=== PATIENT | male | born 1955 | race Caucasian/White ===

== ENCOUNTER 2016-06-03 08:14 | Day surgery (SDC) | payer SELFPAY ==
[2016-06-02 12:33] LABS: BASOPHILS 0.6 %; BASOPHILS ABSOLUTE 0.03 10/3/uL (0.0-0.16); EOSINOPHILS 1.4 %; EOSINOPHILS ABSOLUTE 0.07 10/3/uL (0.0-0.53); HEMATOCRIT 50.1 % (40.0-51.0); LYMPHOCYTES 27.1 %; LYMPHOCYTES ABSOLUTE 1.31 10/3/uL (0.67-4.30); MEAN CORPUS HGB CONC 35.9 g/dL (32.0-36.0); MEAN CORPUSCULAR HEMOGLOB 34.9 pg (26.0-34.0); MEAN CORPUSCULAR VOLUME 97.1 fL (80-100); MEAN PLATELET VOLUME 12.8 fL (9.2-13.0); MONOCYTES 12.4 %; NEUTROPHILS 58.5 %; NEUTROPHILS ABSOLUTE 2.83 10/3/uL (2.02-8.40); PLATELET COUNT 56 10/3/uL (150-400); RBC DISTRIBUTION WIDTH 15.8 % (12.0-16.0); RED CELL COUNT 5.16 10/6/uL (4.7-6.1); WHITE BLOOD CELLS 4.8 10/3/uL (4.5-10.5)
[2016-06-02 12:34] LABS: MANUAL DIFF NO %
[2016-06-02 12:54] LABS: ALBUMIN 4.2 G/DL (3.5-5.0); ALKALINE PHOSPHATASE 81 U/L (45-117); BUN (BLOOD UREA NITROGEN) 7 MG/DL (6-23); CALCIUM, SERUM 9.5 MG/DL (8.5-10.4); CHLORIDE, SERUM 103 MMOL/L (96-112); CO2 (CARBON DIOXIDE) 32 MMOL/L (24-34); CREATININE 0.92 MG/DL (0.70-1.30); DIRECT BILIRUBIN 0.6 MG/DL (0.0-0.4); GFR AFRICAN AMERICAN 106 ML/MIN (>=60); GFR NON AFRICAN AMERICAN 91 ML/MIN (>=60); GLUCOSE, SERUM 100 MG/DL (60-99); INDIRECT BILIRUBIN(NOT ORDER) 0.7 MG/DL (0.1-0.9); POTASSIUM, SERUM 4.5 MMOL/L (3.5-5.3); SGOT(AST) 57 U/L (5-40); SGPT(ALT) 57 U/L (5-65); SODIUM, SERUM 142 MMOL/L (135-148); TOTAL BILIRUBIN 1.3 MG/DL (0-1.2); TOTAL PROTEIN 7.3 G/DL (6.0-8.5)
[2016-06-02 12:59] LABS: PLATELET ESTIMATE DEC (ADEQUATE)
[2016-06-02 13:00] LABS: RBC MORPHOLOGY NORM (NORMAL)
--- NOTE | ~2016-06-03 | OP ---
Record Of Operation [facility] [address] [place]. [address] NAME: PHILLIP JONES : 59 STATUS : [facility]#: [id number] AGE: 60 ADM/REG DATE : 06/03/16 MR#: [id number] REPORT SERV DATE: 06/03/16 DICTATED BY: DATE: REPORT STATUS : Draft TRANSCRIBED BY: MODL DATE: 06/03/16 DATE OF PROCEDURE: 06/03/2016 PREOPERATIVE DIAGNOSES: 1. Caries. 2. Bilateral mandibular lizzy. POSTOPERATIVE DIAGNOSES: 1. Caries. 2. Bilateral mandibular lizzy. PROCEDURES: 1. Surgical removal of tooth #19 and #20. 2. Surgical removal of right torus. 3. Surgical removal of left torus. ANESTHESIA: General endotracheal tube anesthesia. FLUIDS: Per Anesthesia. BLOOD LOSS: 20 mL. COMPLICATIONS: None. INDICATIONS FOR PROCEDURE: This is a 60-year-old male, who presented to [facility] complaining of bilateral mandibular lizzy and carious teeth. The patient stated that he wanted to receive a denture, so it was deemed necessary to remove the lower mandibular lizzy and remaining teeth. The patient's medical history was significant for cirrhosis, in which he had secondary low platelet count. The patient was scheduled for a preoperative evaluation and found to have a platelet count of 50,000. The patient was then given two in order to raise his platelet count to an adequate level for surgery. Risks, benefits, and alternatives were described to the patient. Risks included, but are not limited to, broken jaw, need for another procedure, nerve damage, or bleeding. PROCEDURE IN DETAIL: The patient was brought to the operating room. Patient was transferred to the operating table under his own strength. Once we moved over to the operating table, the patient was orally intubated by Anesthesia without complication. The patient was then turned over to the oral maxillofacial surgery team, who prepped and draped the patient in a routine sterile fashion. Once the patient was prepped and draped, attention was directed to the lower left mandible, where 0.5% Marcaine with 1:200,000 epinephrine was used to make blocks on both the left and right side of the mandible. Upon completion of this, attention was directed to the lower left quadrant, in which a 15 blade was used to make a incision. Full-thickness mucoperiosteal flap was then reflected on the left side. A similar type procedure was then done on the right side. Once this was completed, surgical removal of teeth numbers 19 and 20 was completed. Upon completion of Record Of Operation [facility] [id number] [facility] [place] [address] NAME: PHILLIP JONES : 59 STATUS : [facility]#: [id number] AGE: 60 ADM/REG DATE : 06/03/16 MR#: [id number] REPORT SERV DATE: 06/03/16 DICTATED BY: DATE: REPORT STATUS : Draft TRANSCRIBED BY: ANDRAE DATE: 06/03/16 this, further reflection of the flap in order to expose the left mandibular lizzy was done. A 701 bur was then used to make an osteotomy on the lateral aspect of the mandibular torus. Once this was completed, an elevator was used to remove the mandibular the mandible. Hemostasis was then noted. A similar type procedure was the done on the right side. Once this was completed, copious amounts of irrigation was used. Surgiflo hemostatic agent was then used on both the submandibular regions of both the left and right side. Once this was completed, I again noted hemostasis. The patient was then closed using 3-0 chromic gut suture. SANIA/ANDRAE Mike Velasquez DDS / [id number] CC: Mike Velasquez DDS
[~2016-06-03 08:14] MED LIST: CLARIT10 PO; FLONASE NAS; LEVOTHYROXIN175 MCG PO; LYRICA200 MG PO; NORCO1 TAB PO; PROAIR HFA INH; VITAMIN D31000 UNIT PO
== END 2016-06-03 18:12 | disposition home or self-care (01) ==
LOC: SDC 08:14
PROVIDERS: Dentist Oral and Maxillofacial Surgery
PROC: 0NBT0ZZ Excision of Right Mandible, Open Approach (ICD-10-PCS; 2016-06-03)
PROC: 0CDXXZ1 Extraction of Lower Tooth, Multiple, External Approach (ICD-10-PCS; 2016-06-03)
PROC: 0NBV0ZZ Excision of Left Mandible, Open Approach (ICD-10-PCS; principal; 2016-06-03 11:15)
DX: K02.9 Dental caries, unspecified (principal); M27.8 Other specified diseases of jaws; K74.60 Unspecified cirrhosis of liver; G20 Parkinson's disease; G40.909 Epilepsy, unspecified, not intractable, without status epilepticus; G47.33 Obstructive sleep apnea (adult) (pediatric); J44.9 Chronic obstructive pulmonary disease, unspecified; E03.9 Hypothyroidism, unspecified; F41.9 Anxiety disorder, unspecified; F32.9 Major depressive disorder, single episode, unspecified; F17.210 Nicotine dependence, cigarettes, uncomplicated; L40.9 Psoriasis, unspecified; Z79.899 Other long term (current) drug therapy; Z87.01 Personal history of pneumonia (recurrent); Z90.89 Acquired absence of other organs; Z98.1 Arthrodesis status; Z98.890 Other specified postprocedural states
CPT/HCPCS: 36415; 80048; 80076; 85025; 85049; 86850; 86900; 86901; 93005; A9270-GY; J0360; J0690; J2250; J2405; J2710; J3010; P9035